=== PATIENT | female | born 1980 | race American Indian/Alaskan Native ===

== ENCOUNTER 2017-01-08 09:45 | Outpatient (CLI) | payer OTHER ==
--- NOTE | 2017-01-08 13:16 | Ultrasound Report ---
Bilateral diagnostic mammogram with CAD and targeted left breast ultrasound. History: New palpable lump in the left breast. No prior studies in this patient who is 36 years old. Findings: The breast parenchyma is heterogeneously dense. There is no evidence of mass, architectural distortion, or suspicious calcifications. At the site of the palpable abnormality in the left breast, there are no focal findings. Targeted ultrasound of the area of palpable abnormality reveals a hypoechoic subcutaneous lesion measuring 7 x 4 mm. There is no acoustic shadowing. This corresponds to the palpable abnormality. Impression: A small hypoechoic lesion is seen in the subcutaneous tissues of the left breast at the site of the palpable abnormality. This does not appear to be within the breast parenchyma and demonstrates benign sonographic features. BI-RADS code: 3. Recommendation: A followup targeted ultrasound of this region is recommended in 3 months.
== END 2017-01-08 09:46 | disposition home or self-care (01) ==
LOC: MAMMO 09:45
DX: N63 Unspecified lump in breast (principal); N64.89 Other specified disorders of breast; Z80.3 Family history of malignant neoplasm of breast
CPT/HCPCS: 76642; G0204; 77066

== ENCOUNTER 2017-01-26 19:04 | Emergency (ER) | payer OTHER ==
[2017-01-26 19:33] LABS: Eosinophils % (Auto) 0.6 % (0.0-4.3); Hematocrit 32.6 % (30.3-42.9); Mean Corpuscular HGB Conc 34 % (30-34); Mean Corpuscular Hemoglobin 28 pg (28-32); Mean Corpuscular Volume 83 fl (79-97); Platelet Count 522 K/mm3 (140-440); Red Blood Count 3.94 M/mm3 (3.65-5.03); Red Cell Distribution Width 16.3 % (13.2-15.2); White Blood Count 8.2 K/mm3 (4.5-11.0)
[2017-01-26 19:54] LABS: Erythrocyte Sedimentation Rate 78 mm/Hr (0-20)
[2017-01-26 19:57] LABS: Anion Gap 17 mmol/L; BUN/Creatinine Ratio 6.66; Blood Urea Nitrogen 4 mg/dL (7-17); Calcium 8.8 mg/dL (8.4-10.2); Carbon Dioxide 22 mmol/L (22-30); Chloride 110.4 mmol/L (98-107); Glucose 85 mg/dL (65-100); Potassium 3.2 mmol/L (3.6-5.0); Sodium 146 mmol/L (137-145)
[2017-01-26 22:40] LABS: Bilirubin,Urine NEG (Negative); Blood,Urine NEG (Negative); Ketones,Urine NEG (Negative); Leukocyte Esterase,Urine TR (Negative); Nitrite,Urine NEG (Negative); Protein,Urine <15 mg/dL mg/dL (Negative)
[2017-01-27] MEDS ORDERED: MORPHINE IM ONE (02:33)
[2017-01-27] MEDS ORDERED: ZOFRAN IM ONE (02:33)
--- NOTE | 2017-01-27 02:37 | Emergency Department Report ---
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 She stated that she is having generalized joints pain, denied any fever no nausea no vomiting, no chest pain. -: days(s) Severity scale (0 -10): 4 Quality: aching Consistency: constant Associated Symptoms: denies other symptoms - Related Data Previous Rx's Medication Instructions Recorded Last Taken Type HYDROcodone/APAP 5-325 [[place] 1 each PO Q6HR PRN #14 tablet 01/27/17 Unknown Rx 5-325 mg TAB] Ondansetron [Zofran Odt] 4 mg PO Q8HR PRN #14 tab.rapdis 01/27/17 Unknown Rx Allergies Allergy/AdvReac Type Severity Reaction Status Date / Time No Known Allergies Allergy Unverified 01/08/17 09:45 ED Review of Systems ROS: Stated complaint: LUPUS FLARE/JOINT PAIN Other details as noted in HPI Comment: All other systems reviewed and negative Constitutional: denies: chills, fever Respiratory: denies: cough, shortness of breath Cardiovascular: denies: chest pain Gastrointestinal: denies: abdominal pain, nausea, vomiting Genitourinary: denies: dysuria, frequency, discharge Neurological: denies: headache, weakness ED Past Medical Hx - Past Medical History Previous Medical History?: Yes Additional medical history: Lupus - Surgical History Past Surgical History?: Yes Additional Surgical History: Bilateral Knee Replacement. C-Secx1 - Social History Smoking Status: Never Smoker Substance Use Type: None - Medications Home Medications: Home Medications Medication Instructions Recorded Confirmed Last Taken Type HYDROcodone/APAP 5-325 [[place] 1 each PO Q6HR PRN #14 tablet 01/27/17 Unknown Rx 5-325 mg TAB] Ondansetron [Zofran Odt] 4 mg PO Q8HR PRN #14 tab.rapdis 01/27/17 Unknown Rx ED Physical Exam - General Limitations: No Limitations General appearance: alert - Head Head exam: Present: atraumatic, normocephalic - Eye Eye exam: Present: normal appearance - ENT ENT exam: Present: normal exam, normal orophraynx - Neck Neck exam: Present: normal inspection - Respiratory Respiratory exam: Present: normal lung sounds bilaterally. Absent: wheezes, rales, rhonchi - Cardiovascular Cardiovascular Exam: Present: tachycardia. Absent: irregular rhythm, systolic murmur, diastolic murmur, rubs - GI/Abdominal GI/Abdominal exam: Present: soft. Absent: distended, tenderness, guarding, rebound - Extremities Exam Extremities exam: Present: normal inspection, full ROM. Absent: tenderness, joint swelling, calf tenderness - Back Exam Back exam: Present: normal inspection, full ROM. Absent: tenderness, CVA tenderness (R), CVA tenderness (L), muscle spasm, paraspinal tenderness, vertebral tenderness - Neurological Exam Neurological exam: Present: alert, oriented X3, CN II-XII intact - Skin Skin exam: Present: warm ED Course Vital Signs 01/26/17 19:10 Temperature 99.4 F Pulse Rate 111 H Respiratory 20 Rate Blood Pressure 143/102 [Right] O2 Sat by Pulse 100 Oximetry - Reevaluation(s) Reevaluation #1: 01/27/17 02:39 Patient stated that she is feeling better. We'll give him a prescription for hydrocortisone and to follow-up with her primary doctor in the next 2-3 days. ED Medical Decision Making - Lab Data Result diagrams: 01/26/17 19:19 01/26/17 19:19 Critical care attestation.: If time is entered above; I have spent that time in minutes in the direct care of this critically ill patient, excluding procedure time. ED Disposition Clinical Impression: Acute pain, Lupus arthritis Disposition: - TO HOME OR SELFCARE Is pt being admited?: No Condition: Stable Referrals: PRIMARY CARE, [Primary Care Provider] - 3-5 Days
[2017-01-27 03:05] VITALS: BP 145/89
== END 2017-01-27 04:11 | disposition home or self-care (01) ==
LOC: ED 19:04
DX: R52 Pain, unspecified (principal); M13.88 Other specified arthritis, other site; L93.0 Discoid lupus erythematosus
CPT/HCPCS: 36415; 80048; 81001; 81025; 82140; 83880; 85025; 85652; 86140; 96372; 99283; J2270; J2405